=== PATIENT | female | born 2000 | race Caucasian/White ===

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

== ENCOUNTER → 2018-04-03 | Outpatient (CLI) | payer OTHER ==
[~2018-04-03] MED LIST changes: -ABL/15 PO; +ABL10 PO
== END | disposition home or self-care (01) ==
LOC: C.LAB1850 11:25
PROVIDERS: ATTEND Obstetrics & Gynecology
DX: N93.9 Abnormal uterine and vaginal bleeding, unspecified (principal)

== ENCOUNTER 2018-12-09 18:58 | Observation (INO) ==
[2018-12-09] MEDS ORDERED: ACETAMINOPHEN 325 MG TAB PO PRN (19:44)
[2018-12-09] MEDS ORDERED: LACTATED RINGER'S 1,000 ML IV ONE (20:09)
[2018-12-09 20:11] LABS: Appearance Urine Cloudy (Clear); Bacteria Urine Automated Negative (Negative); Bilirubin Urine Negative (Negative); Color Urine Yellow; Epithelial Cell Urine Auto >30 /lpf (0-5); Glucose Urine UA Negative (Negative); Ketones Urine Negative (Negative); Leukocyte Esterase Urine 2+ (Negative); Nitrite Urine Negative (Negative); Protein Urine Negative (Negative); Specific Gravity Urine 1.013 (1.000-1.030); Urobilinogen Urine Negative (Negative); pH Urine 7.5 (4.5-7.5)
--- NOTE | 2018-12-09 20:19 | History & Physical Report ---
Date of Service December 09, 2018 Assessment & Plan (1) uterine contractions: 18 yo at 31.2 wks with multiple complaints VSS Afebrile ctxs with cervical dilatation @ 1cm Vaginal augustin FHR reassuring Plan; Observe, monitor, labs, FFN, IVF bolus, Diflucan for augustin and reevaluate (2) Vagina, candidiasis: History of Present Illness Chief Complaint: Multiple Primary Care Provider: He Arechiga MD Patient is a 18 yo at 31.2 wks who has multiple complaints She passed her mucus plug yesterday with yellow d/c, it has never been yellow before She has been feeling BH ctxs since 10/27/18, they have been iregular every 1 to 1.5 hours but they got more regular today q 5-10 min She felt a strong one last night when she passed her mucus plug, it was like ripping pain in middle of her belly She c/o burning in vagina and with urination, she called 3 days ago and was told to start AB for UTI, but it was not called in to her pharmacy She has nausea+ but no vomiting No VB +FM but decreased Her has been complicated by 1) h/o Triploidy in P1, had IUFD and D&C 2)Anxiety/ depression, h/o PTSD 3) Smoker Allergies Allergy/AdvReac Type Severity Reaction Status Date / Time cefuroxime Allergy Mild RASH Verified 12/09/18 19:25 Sulfa (Sulfonamide Allergy Unknown rash Verified 12/09/18 19:25 Antibiotics) Home Medications Home Medications Medication Instructions Recorded Confirmed Type vefarcnjbh-matycfwejfoyw-hpum 1 cap PO Q6H PRN 12/09/18 12/09/18 History [Fioricet] ferrous sulfate [iron] 325 mg PO DAILY 12/09/18 12/09/18 History vit-iron fum-folic ac 12/09/18 History [ Vitamin] Patient History Medical History Migraines Bipolar disorder (Chronic) PTSD (post-traumatic stress disorder) (Chronic) Oppositional defiant disorder (Chronic) Anxiety disorder (Chronic) Social History marital status: Single Current Living Situation: Other Current Living Situation Comment: jacob, and 2 guests who will be leaving on 12/18 Other Information That Helps Us Care for You: No Feels Safe at Home: Yes Safety Concerns: Feels Safe At This Time Smoking Status: Former smoker Do You Dip or Chew Tobacco: No Tobacco Cessation Education Requested by Patient: No Hx Alcohol Use: No Hx Substance Use: No Beliefs That Will Affect Care: None Preferred Language: Macedonian Communication Ability: Effective [employer] D[employer] Stewardess Required: No Review of Systems All systems reviewed & are unremarkable except as noted in HPI & below Physical Exam 2 Vital Signs (Past 24 Hours): Last Vital Signs Temp 36.9 C 12/09/18 19:12 Pulse 94 H 12/09/18 19:12 Resp 18 12/09/18 19:12 BP 107/76 12/09/18 19:12 Constitutional: WD/WN, vitals as above comfortable Gastrointestinal (Abdomen): Inspection/Auscultation: abdomen normal to inspection Percussion/Palpation: abdomen soft Mild ctxs q 2-3min Genitourinary: SSE; abundant curdy d/c, c/w augustin Amnisure negative Cervix 1cm/ soft, but no effacement, -3 Monitoring External Monitor 130's baseline, AGA Tocodynamometer Mild / small? ctxs q2-3 min
[2018-12-09] MEDS ORDERED: FLUCONAZOLE 100 MG TAB PO STA (20:26)
[2018-12-09] MEDS ORDERED: LACTATED RINGER'S 1,000 ML IV SCH ×2 (20:30→22:45)
[2018-12-09] MEDS ORDERED: MAGNESIUM SULFATE / WTR 4 GM/100 ML BAG IV ONE ×2 (20:50→22:50)
[2018-12-09] MEDS ORDERED: TERBUTALINE SULFATE 1 MG/ML VIAL SQ ONE (21:58)
[2018-12-09] MEDS ORDERED: BETAMETH SOD PHOS/ACETATE IA 6 MG/ML IM SCH (22:00)
--- NOTE | 2018-12-09 22:21 | Obstetrical Progress Note ---
Date of Service December 09, 2018 Subjective Patient is reevaluated She feels better in terms of ctxs but now she has back pain She took Tylenol for both and it helped U/A LE+, epithelial cells+, no bacteria Amnisure negative FFN negative Bed side US with full bladder: CL: 28-29 mm HOSSEIN 13 cm Vertex VE: [place] still monitoring ctxs despite IVF bolus Plan to observe overnight, Betamethasone series and terbutaline SQ once Physical Exam 2 Vital Signs (Past 24 Hours): Last Vital Signs Temp 36.9 C 12/09/18 19:12 Pulse 94 H 12/09/18 19:12 Resp 18 12/09/18 19:12 BP 107/76 12/09/18 19:12
[2018-12-09] MEDS ORDERED: MAGNESIUM SULFATE 40GM / WTR 1,000 ML BAG IV ONE (22:34)
[2018-12-09] MEDS ORDERED: MAGNESIUM SULFATE 4GM / WTR 100 ML BAG IV ONE (22:34)
--- NOTE | 2018-12-09 22:34 | Obstetrical Progress Note ---
Date of Service December 09, 2018 Subjective Patient is back from BR VE repeated Cervix 2-3 cm/ 50-60%/bulging bag FHR categ I [place]: ctxs q2-3 min AP: 18 yo at 31.2 wks with contractions, cervical change Plan to start Magnesium IV tocolysis, transfer to [facility] with NICU Physical Exam 2 Vital Signs (Past 24 Hours): Last Vital Signs Temp 36.9 C 12/09/18 19:12 Pulse 96 H 12/09/18 22:25 Resp 18 12/09/18 22:25 BP 119/65 12/09/18 22:25
[2018-12-09] MEDS ORDERED: MAGNESIUM SULFATE / WTR 40 GM/1,000 ML BAG IV SCH (23:15)
--- NOTE | 2018-12-13 07:47 | Discharge Summary ---
DETAILS OF ADMISSION: The patient is a 18-year-old G2, P0-0-1-0 at 31 weeks and 2 days of gestation, who presented to Labor and Delivery on 12/10/2018 with multiple complaints, back pain, mucousy discharge, being wet, contractions getting worse, abdominal pain, burning with urination, nausea and decreased movements and on the exam, she was found to have abundant vaginal candidal discharge and her cervix was 1 cm thick, -3 and her heart rate was category 1 with a reactive NST. She was given IV fluids, Diflucan for Cele and observed. During observation, she started to have regular contractions and she was feeling them. Her cervix changed to 2-3 cm, 60% and with a bulging bag. At that point, decision was made to start tocolysis and steroid series was for lung maturation. She was given Celestone 12 mg IM and then IV magnesium was started for tocolysis and she was transferred to [facility], bed in NICU was available for . Contact was made with [facility], accepted her transfer. She was transferred with a helicopter to [facility] on 12/10/2018. See my notes in the [employer] system for details.
== END 2018-12-09 23:52 | disposition short-term general hospital (02) ==
LOC: OPB 18:58 → 4S1 18:58

== ENCOUNTER 2018-12-21 18:56 | Observation (INO) ==
[2018-12-21] MEDS ORDERED: LACTATED RINGER'S 1,000 ML IV ONE (19:28)
[2018-12-21 20:01] LABS: Basophils # (auto) 0.02 K/uL (0-0.2); Basophils % (auto) 0.2 %; Eosinophils # (auto) 0.05 K/uL (0-0.5); Eosinophils % (auto) 0.4 %; Hematocrit (blood only) 32.8 % (37-47); Hemoglobin 10.8 g/dL (12.0-16.0); Immature Granulocytes # (auto) 0.13 K/uL (0.00-0.02); Immature Granulocytes % (auto) 1.1 %; Lymphocytes # (auto) 2.88 K/uL (1.2-3.4); Lymphocytes % (auto) 23.6 %; Mean Corpuscular Volume 92.1 fL (80-100); Mean Platelet Volume 8.8 fL (7.4-10.4); Monocytes # (auto) 1.04 K/uL (0.11-0.59); Monocytes % (auto) 8.5 %; Neutrophils % (auto) 66.2 %; Platelet Count 239 K/uL (130-400); RDW Coefficient of Variation 13.3 % (11.5-14.5); RDW Standard Deviation 44.1 fL (36.4-46.3); Red Blood Count 3.56 M/uL (4.2-5.4); White Blood Count 12.22 K/uL (4.8-10.8)
[2018-12-21 20:10] LABS: INR 0.9 (0.9-1.1); Partial Thromboplastin Ratio 0.9; Prothrombin Time 9.4 Seconds (9.0-12.0)
[2018-12-21] MEDS ORDERED: NIFEdipine 10 MG CAP PO STA ×2 (20:18→21:14)
[2018-12-21 20:23] LABS: Mean Corpuscular Hgb Conc 32.9 g/dL (32-36)
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
[2018-12-21] MEDS: LACTATED RINGER'S 1,000 ML IV SCH (20:45)
[2018-12-21 21:02] LABS: Appearance Urine Clear (Clear); Bacteria Urine Automated Negative (Negative); Bilirubin Urine Negative (Negative); Color Urine Yellow; Epithelial Cell Urine Auto >30 /lpf (0-5); Glucose Urine UA Negative (Negative); Ketones Urine Trace (Negative); Leukocyte Esterase Urine Trace (Negative); Nitrite Urine Negative (Negative); Protein Urine Negative (Negative); Specific Gravity Urine 1.021 (1.000-1.030); Urobilinogen Urine Negative (Negative)
[2018-12-21] MEDS ORDERED: ONDANSETRON 4 MG OD TAB PO PRN (21:52)
[2018-12-21] MEDS ORDERED: PRENATAL VITAMIN 1 TAB PO SCH (21:55)
--- NOTE | 2018-12-21 21:58 | Obstetrical Progress Note ---
Date of Service December 21, 2018 Subjective Patient is reevaluated She feels better, ctxs spaced out and less painful She is tired and likes to sleep took 20 mg Procardia and then 10 mg due to persistent ctxs VSS Afebrile FHR categ I Abd soft, NT, no ctxs, toco s adjused [place] mild irregular ctxs, spaced out Lab Results 12/21/18 12/21/18 12/21/18 Range/Units 19:44 19:44 19:45 WBC 12.22 H (4.8-10.8) K/uL RBC 3.56 L (4.2-5.4) M/uL Hgb 10.8 L (12.0-16.0) g/dL Hct 32.8 L (37-47) % MCV 92.1 (80-100) fL MCH 30.3 (25-34) pg MCHC 32.9 (32-36) g/dL RDW Std Deviation 44.1 (36.4-46.3) fL RDW Coeff of Gene 13.3 (11.5-14.5) % Plt Count 239 (130-400) K/uL MPV 8.8 (7.4-10.4) fL Immature Gran % (Auto) 1.1 % Neut % (Auto) 66.2 % Lymph % (Auto) 23.6 % [place] % (Auto) 8.5 % Eos % (Auto) 0.4 % Baso % (Auto) 0.2 % Immature Gran # (Auto) 0.13 H (0.00-0.02) K/uL Neut # (Auto) 8.10 H (1.4-6.5) K/uL Lymph # (Auto) 2.88 (1.2-3.4) K/uL [place] # (Auto) 1.04 H (0.11-0.59) K/uL Eos # (Auto) 0.05 (0-0.5) K/uL Baso # (Auto) 0.02 (0-0.2) K/uL PT 9.4 (9.0-12.0) Seconds INR 0.9 (0.9-1.1) APTT 24.0 (21.0-31.0) Seconds PTT Ratio 0.9 Fibrinogen 345 (184-400) mg/dl Urine Color Urine Appearance (Clear) Urine pH (4.5-7.5) Ur Specific [place] (1.000-1.030) Urine Protein (Negative) Urine Glucose (UA) (Negative) Urine Ketones (Negative) Urine Blood (Negative) Urine Nitrite (Negative) Urine Bilirubin (Negative) Urine Urobilinogen (Negative) Ur Leukocyte Esterase (Negative) Urine WBC (Auto) (0-5) /hpf Urine RBC (Auto) (0-4) /hpf U Hyaline Cast (Auto) (0-5) /lpf U Epithel Cells (Auto) (0-5) /lpf Urine Bacteria (Auto) (Negative) 12/21/18 Range/Units 20:15 WBC (4.8-10.8) K/uL RBC (4.2-5.4) M/uL Hgb (12.0-16.0) g/dL Hct (37-47) % MCV (80-100) fL MCH (25-34) pg MCHC (32-36) g/dL RDW Std Deviation (36.4-46.3) fL RDW Coeff of Gene (11.5-14.5) % Plt Count (130-400) K/uL MPV (7.4-10.4) fL Immature Gran % (Auto) % Neut % (Auto) % Lymph % (Auto) % [place] % (Auto) % Eos % (Auto) % Baso % (Auto) % Immature Gran # (Auto) (0.00-0.02) K/uL Neut # (Auto) (1.4-6.5) K/uL Lymph # (Auto) (1.2-3.4) K/uL [place] # (Auto) (0.11-0.59) K/uL Eos # (Auto) (0-0.5) K/uL Baso # (Auto) (0-0.2) K/uL PT (9.0-12.0) Seconds INR (0.9-1.1) APTT (21.0-31.0) Seconds PTT Ratio Fibrinogen (184-400) mg/dl Urine Color Yellow Urine Appearance Clear (Clear) Urine pH 6.0 (4.5-7.5) Ur Specific [place] 1.021 (1.000-1.030) Urine Protein Negative (Negative) Urine Glucose (UA) Negative (Negative) Urine Ketones Trace H (Negative) Urine Blood Negative (Negative) Urine Nitrite Negative (Negative) Urine Bilirubin Negative (Negative) Urine Urobilinogen Negative (Negative) Ur Leukocyte Esterase Trace H (Negative) Urine WBC (Auto) 5-10 H (0-5) /hpf Urine RBC (Auto) 0-4 (0-4) /hpf U Hyaline Cast (Auto) 1-5 (0-5) /lpf U Epithel Cells (Auto) >30 H (0-5) /lpf Urine Bacteria (Auto) Negative (Negative) Plan observe overnight, monitor, continue with IVF and Procardia Physical Exam 2 Vital Signs (Past 24 Hours): Last Vital Signs Pulse 107 H 12/21/18 19:13 Resp 18 12/21/18 20:09 BP 119/68 12/21/18 19:13
[2018-12-21] MEDS: DOCUSATE SODIUM 100 MG CAP PO SCH (23:39)
[2018-12-21] MEDS ORDERED: ACETAMINOPHEN 325 MG TAB PO PRN (23:47)
--- NOTE | 2018-12-21 23:51 | Obstetrical Progress Note ---
Date of Service December 21, 2018 Subjective Patient is reevaluated She is back from US US normal anterior placenta, HOSSEIN;8.8 ( measured 2 quadrants only) Denies any pain or contractions for 45 minutes No side effects from Procardia Desires Benadryl to sleep and air fan for the room Abd: soft, NT [place] still showing low amplitude ctxs but she does not feel them VE; 2/ 50%/ -3, posterior, unchanged AP: 18 yo at 33.1 wks with contractions, no cervical change, FHR reassuring US and blood work normal Plan: continue with Procardia, IVF, benadryl for sleep Repeat US in am All questions were answered Physical Exam 2 Vital Signs (Past 24 Hours): Last Vital Signs Pulse 88 12/21/18 23:26 Resp 18 12/21/18 20:09 BP 120/63 12/21/18 23:26
[2018-12-22] MEDS: ACETAMINOPHEN 325 MG TAB PO PRN ×2 (00:09→06:21)
[2018-12-22] MEDS: NIFEdipine 10 MG CAP PO SCH ×3 (01:46→08:38)
[2018-12-22] MEDS: LACTATED RINGER'S 1,000 ML IV SCH (04:45)
[2018-12-22 05:52] LABS: Basophils # (auto) 0.01 K/uL (0-0.2); Basophils % (auto) 0.1 %; Eosinophils # (auto) 0.05 K/uL (0-0.5); Eosinophils % (auto) 0.5 %; Hematocrit (blood only) 29.1 % (37-47); Hemoglobin 9.7 g/dL (12.0-16.0); Immature Granulocytes # (auto) 0.11 K/uL (0.00-0.02); Lymphocytes # (auto) 3.18 K/uL (1.2-3.4); Lymphocytes % (auto) 28.8 %; Mean Corpuscular Hgb Conc 33.3 g/dL (32-36); Mean Corpuscular Volume 91.8 fL (80-100); Mean Platelet Volume 8.7 fL (7.4-10.4); Monocytes # (auto) 0.91 K/uL (0.11-0.59); Monocytes % (auto) 8.2 %; Neutrophils % (auto) 61.4 %; Platelet Count 212 K/uL (130-400); RDW Coefficient of Variation 13.4 % (11.5-14.5); RDW Standard Deviation 44.3 fL (36.4-46.3); Red Blood Count 3.17 M/uL (4.2-5.4); White Blood Count 11.06 K/uL (4.8-10.8)
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
[2018-12-22 06:20] LABS: Partial Thromboplastin Ratio 0.9; Prothrombin Time 9.8 Seconds (9.0-12.0)
--- NOTE | 2018-12-22 08:00 | Obstetrical Progress Note ---
Date of Service December 22, 2018 Subjective Patient is reevaluated She feels well, no complaints No more ctxs or pain No LOF/VB +FM No side effects from Procardia FHR reactive [place]: still has those low amplitude frequent ctxs Bed side US: vertex, placenta anterior, normal, HOSSEIN 12.4 cm VE; unchanged, 2/ 40%/ -3, posterior Plan to continue to monitor Physical Exam 2 Vital Signs (Past 24 Hours): Last Vital Signs Temp 36.8 C 12/22/18 07:06 Pulse 81 12/22/18 07:06 Resp 18 12/22/18 07:06 BP 105/54 L 12/22/18 07:06
[2018-12-22] MEDS: DOCUSATE SODIUM 100 MG CAP PO SCH (08:37)
[2018-12-22] MEDS ORDERED: NIFEdipine 10 MG CAP PO SCH (11:00)
--- NOTE | 2018-12-22 11:06 | Obstetrical Progress Note ---
Date of Service December 22, 2018 Subjective Patient's mom ( raphael) is here and they like to be discharged Patient denies any pain or ctxs +FM's No side effects from Procardia Plan to d/c home with home pack and prescription and f/u this week in office Discussed when to call All questions were answered Physical Exam 2 Vital Signs (Past 24 Hours): Last Vital Signs Temp 36.8 C 12/22/18 07:06 Pulse 81 12/22/18 07:06 Resp 18 12/22/18 07:06 BP 105/54 L 12/22/18 07:06
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
== END 2018-12-22 11:28 | disposition home or self-care (01) ==
LOC: 4S1 18:56 → OPB 18:56

== ENCOUNTER 2019-01-14 17:41 | Inpatient (IN) ==
[2019-01-14] MEDS ORDERED: OXYTOCIN 30 UNITS/500 ML BAG IV PRN (19:12)
[2019-01-14] MEDS ORDERED: LACTATED RINGER'S 1,000 ML IV PRN (19:12)
[2019-01-14] MEDS ORDERED: PENICILLIN G POTASSIUM 3 MU in DEXTROSE 5% 100 ML IV PRN (19:12)
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
[2019-01-14] MEDS ORDERED: PENICILLIN G POTASSIUM 6 MU in DEXTROSE 5% 250 ML IV ONE (19:30)
[2019-01-14] MEDS: LACTATED RINGER'S 1,000 ML IV SCH (19:38)
[2019-01-14 19:46] LABS: Hematocrit (blood only) 33.1 % (37-47); Hemoglobin 11.1 g/dL (12.0-16.0); Mean Corpuscular Volume 89.5 fL (80-100); Mean Platelet Volume 8.7 fL (7.4-10.4); Platelet Count 250 K/uL (130-400); RDW Coefficient of Variation 13.4 % (11.5-14.5); RDW Standard Deviation 43.9 fL (36.4-46.3); White Blood Count 13.24 K/uL (4.8-10.8)
[2019-01-14 19:52] LABS: Mean Corpuscular Hgb Conc 33.5 g/dL (32-36)
--- NOTE | 2019-01-14 21:20 | Obstetrical Progress Note ---
Date of Service January 14, 2019 Subjective Patient is reevaluated She is lyng in bed, cuddled with her BF, all family members in the room She was ambulating earlier Ctxs q 3-4 min, lasting for 1 min, pain level is 6.5/10 per her No LOF/VB +FM She states she does not need pain meds nor epidural yet, they are painful but not severe She recieved 1st dose of PCN FHR had been categ I Royer: cts q2-5min AP: 18 yo at 36.3 wks, with ctxs, cervical change, GBS + FHR reassuring PCN 1st dose given Continue to monitor Expectant management Physical Exam 2 Vital Signs (Past 24 Hours): Last Vital Signs Temp 36.7 C 01/14/19 19:06 Pulse 100 H 01/14/19 19:06 Resp 22 01/14/19 19:06 BP 120/79 01/14/19 19:06
--- NOTE | 2019-01-15 00:22 | Obstetrical Progress Note ---
Date of Service January 15, 2019 Physical Exam 2 Vital Signs (Past 24 Hours): Last Vital Signs Temp 36.8 C 01/14/19 23:35 Pulse 88 01/14/19 23:29 Resp 18 01/14/19 23:05 BP 112/60 01/14/19 23:29 Genitourinary: Manual OB Exam: + cervical dilation 6 cm, + cervical effacement 100% and + station -2 OB Exam Monitor Tracing: + external FHT monitor used, + external uterine monitor used, + category I and + normal FHT variability AROM clear fluid
[2019-01-15] MEDS ORDERED: ePHEDrine sulfate 50 MG/ML AMP ONE (00:24)
[2019-01-15] MEDS ORDERED: BUPIVACAINE 0.25% 30 ML VIAL ONE (00:24)
[2019-01-15] MEDS ORDERED: fentaNYL citrate 100 MCG/2 ML VIAL ONE (00:24)
[2019-01-15] MEDS ORDERED: fentaNYL 2MCG/ML ROPIV 1.25MG/ML 100 ML BAG EPI ONE (00:25)
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
[2019-01-15] MEDS ORDERED: NALOXONE HCL 0.4 MG/1 ML VIAL/CARP IV PRN (01:17)
[2019-01-15] MEDS ORDERED: NALOXONE HCL 1 MG in SODIUM CHLORIDE 0.9% 1000ML 1,000 ML IV PRN (01:17)
[2019-01-15] MEDS ORDERED: ONDANSETRON INJ 2 MG/ML 2 ML VIAL IV PRN (01:17)
[2019-01-15] MEDS ORDERED: PROMETHAZINE HCL 12.5 MG in SODIUM CHLORIDE 0.9% 50 ML IV PRN (01:17)
[2019-01-15] MEDS ORDERED: NALBUPHINE HCL INJ 10 MG/ML AMP IV PRN (01:17)
[2019-01-15] MEDS ORDERED: DiphenhydrAMINE HCL 50 MG/ML VIAL IV PRN (01:17)
[2019-01-15] MEDS ORDERED: fentaNYL 2MCG/ML ROPIV 1.25MG/ML 100 ML BAG EPI PRN (01:17)
[2019-01-15] MEDS ORDERED: LACTATED RINGER'S 1,000 ML IV PRN (01:17)
[2019-01-15] MEDS ORDERED: ePHEDrine sulfate 50 MG/ML AMP IV PRN (01:17)
[2019-01-15] MEDS: LACTATED RINGER'S 1,000 ML IV SCH (01:58)
[2019-01-15] MEDS ORDERED: IBUPROFEN 600 MG TAB PO ONE (09:20)
[2019-01-15] MEDS ORDERED: LACTATED RINGER'S 1,000 ML IV SCH (09:30)
--- NOTE | 2019-01-15 10:42 | Anesthesia Procedure Note ---
Date of Service January 15, 2019 Anesthesia Post Epidural Note Vital Signs Vital Signs: Temp Pulse Resp BP Pulse Ox 36.8 C 95 H 18 129/62 97 01/15/19 00:11 01/15/19 05:23 01/15/19 02:45 01/15/19 05:23 01/15/19 03:01 Notes Mental Status: alert / awake / arousable and participated in evaluation Nausea / Vomiting: adequately controlled Pain: adequately controlled Airway Patency, RR, SpO2: stable & adequate BP & HR: stable & adequate Hydration State: stable & adequate Neuraxial Anesthesia: was administered and sensory block is resolving Anesthetic Complications: no major complications apparent Epidural: Removed without complications and With tip intact
[2019-01-15] MEDS ORDERED: HYDROCORTISONE ACETATE 25 MG SUPP PR PRN (11:54)
[2019-01-15] MEDS ORDERED: BENZOCAINE 20% AER SPR 82.5 GM CAN EXT PRN (11:54)
[2019-01-15] MEDS ORDERED: DIPHTHERIA/TETANUS/PERTUSSIS 0.5 ML SYR/VIAL IM ONE (11:54)
[2019-01-15] MEDS ORDERED: ACETAMINOPHEN 325 MG TAB PO PRN (11:54)
[2019-01-15] MEDS ORDERED: BISACODYL 10 MG SUPP PR PRN (11:54)
[2019-01-15] MEDS ORDERED: SUPERCREAM 0.870% 15 GM JAR EXT PRN (11:54)
[2019-01-15] MEDS: PRENATAL VITAMIN 1 TAB PO SCH (12:48)
[2019-01-15] MEDS ORDERED: SODIUM CHLORIDE 0.65% NA SOLN 45 ML (OCEAN) ONE (15:53)
[2019-01-15] MEDS ORDERED: Nursing to Pharmacy Communication ONE (15:54)
[2019-01-15] MEDS ORDERED: SODIUM CHLORIDE 0.65% NA SOLN 45 ML (OCEAN) PRN (15:56)
[2019-01-15] MEDS: DOCUSATE SODIUM 100 MG CAP PO SCH (20:39)
[2019-01-15] MEDS: IBUPROFEN 600 MG TAB PO PRN (20:40)
[2019-01-16] MEDS: DOCUSATE SODIUM 100 MG CAP PO SCH ×2 (08:56→20:25)
[2019-01-16] MEDS: PRENATAL VITAMIN 1 TAB PO SCH (08:57)
[2019-01-16] MEDS: IBUPROFEN 600 MG TAB PO PRN ×2 (11:48→20:25)
--- NOTE | 2019-01-16 12:54 | Obstetrical Progress Note ---
Date of Service January 16, 2019 Assessment & Plan (1) normal course: PPD #1 pt doing well no complaints anticipate disch tomorrow Physical Exam Vital Signs (Past 24 Hours) Last Vital Signs Temp 36.6 C 01/16/19 07:00 Pulse 82 01/16/19 07:00 Resp 24 01/16/19 07:00 BP 113/68 01/16/19 07:00 Pulse Ox 97 01/16/19 07:00
[2019-01-16] MEDS ORDERED: BISACODYL 5 MG TABEC PO SCH (20:00)
[2019-01-17] MEDS: PRENATAL VITAMIN 1 TAB PO SCH (08:22)
[2019-01-17] MEDS: IBUPROFEN 600 MG TAB PO PRN (08:22)
[2019-01-17] MEDS: DOCUSATE SODIUM 100 MG CAP PO SCH (08:22)
--- NOTE | 2019-01-17 09:16 | Obstetrical Progress Note ---
Date of Service January 17, 2019 Subjective Patient is seen and examined. She feels well, no complaints. Ambulating without dizziness Voiding without difficulty Tolerating regular diet with out N&V Bleeding is minimal No fever/ chills/ CP/ SOB/ N&V/ Leg pain Breast feeding / pumping Discussed contraception, plans to have Mirena IUD Vital Signs Temp Pulse Resp BP Pulse Ox 01/16/19 23:30 36.6 C 98 H 18 122/67 98 Vital Signs Temp Pulse Resp BP BP Pulse Ox 01/16/19 23:30 36.6 C 98 H 18 122/67 98 01/16/19 20:35 36.6 C 83 18 128/80 98 01/16/19 15:15 36.9 C 98 H 20 109/69 Lab Results 01/14/19 01/16/19 Range/Units 19:31 17:08 WBC 13.24 H (4.8-10.8) K/uL RBC 3.70 L (4.2-5.4) M/uL Hgb 11.1 L (12.0-16.0) g/dL Hct 33.1 L (37-47) % MCV 89.5 (80-100) fL MCH 30.0 (25-34) pg MCHC 33.5 (32-36) g/dL RDW Std Deviation 43.9 (36.4-46.3) fL RDW Coeff of Gene 13.4 (11.5-14.5) % Plt Count 250 (130-400) K/uL MPV 8.7 (7.4-10.4) fL HIV 1&2 Ab/P24 Ag 4thGn Neg (Neg) PE: General: Alert, orientedx3, NAD Abd: soft, NT, fundus firm, below Umbilicus Perineum intact, Lochia rubra minimal Ext; NT, no edema AP: 18 yo s/p , ppd# 2 VSS Afebrile doing well Continue routine care All questions were answered Instructions were given when to call D/C home , f/u in office Physical Exam Vital Signs (Past 24 Hours): Last Vital Signs Temp 36.6 C 01/16/19 23:30 Pulse 98 H 01/16/19 23:30 Resp 18 01/16/19 23:30 BP 122/67 01/16/19 23:30 Pulse Ox 98 01/16/19 23:30
[2019-01-17 10:31] LABS: Basophils # (auto) 0.02 K/uL (0-0.2); Basophils % (auto) 0.2 %; Eosinophils # (auto) 0.14 K/uL (0-0.5); Eosinophils % (auto) 1.1 %; Hematocrit (blood only) 31.5 % (37-47); Hemoglobin 10.4 g/dL (12.0-16.0); Immature Granulocytes % (auto) 0.8 %; Lymphocytes # (auto) 2.78 K/uL (1.2-3.4); Lymphocytes % (auto) 22.2 %; Mean Corpuscular Volume 89.7 fL (80-100); Mean Platelet Volume 8.6 fL (7.4-10.4); Monocytes # (auto) 0.81 K/uL (0.11-0.59); Monocytes % (auto) 6.5 %; Neutrophils # (auto) 8.65 K/uL (1.4-6.5); Neutrophils % (auto) 69.2 %; Platelet Count 232 K/uL (130-400); RDW Coefficient of Variation 13.6 % (11.5-14.5); RDW Standard Deviation 44.3 fL (36.4-46.3); Red Blood Count 3.51 M/uL (4.2-5.4)
--- NOTE | 2019-01-20 15:39 | Procedure Note ---
Vaginal Delivery Summary Date of Service January 28, 2019
--- NOTE | 2019-01-30 09:35 | Procedure Note ---
Vaginal Delivery Summary Date of Service January 30, 2019 Delivery Note 18 y/o F P0000 at 36.4 weeks with live female over intact perineum. Apgars 7/8 weight 6lbs 13 oz. EBL 300 ml. Cord blood obtained. Placenta delivered spontaneously and intact. No tears. Final sponge and instrument count are correct. Mom and baby stable.
== END 2019-01-17 12:53 | disposition home or self-care (01) | DRG 807 ==
LOC: OPB 17:41 → 4S1 17:42 → 4S2 01-15 06:14

== ENCOUNTER 2021-08-23 09:54 | Observation (INO) ==
[2021-08-23] MEDS ORDERED: OXYTOCIN 30 UNITS/500 ML BAG IV PRN (10:40)
[2021-08-23] MEDS ORDERED: LACTATED RINGER'S 1,000 ML IV PRN (10:40)
[2021-08-23 11:04] LABS: Hematocrit (blood only) 31.3 % (37-47); Hemoglobin 10.4 g/dL (12.0-16.0); Mean Corpuscular Hemoglobin 30.1 pg (25-34); Mean Corpuscular Hgb Conc 33.2 g/dL (32-36); Mean Corpuscular Volume 90.7 fL (80-100); Mean Platelet Volume 8.3 fL (7.4-10.4); Platelet Count 207 K/uL (130-400); RDW Coefficient of Variation 14.1 % (11.5-14.5); RDW Standard Deviation 45.9 fL (36.4-46.3); Red Blood Count 3.45 M/uL (4.2-5.4); White Blood Count 12.35 K/uL (4.8-10.8)
--- NOTE | 2021-08-23 12:51 | Progress Note ---
Date of Service August 23, 2021 Assessment & Plan (1) False labor: Plan: Pt seen for labor check VE 3-4cm. same as this morning Pt is kept for observation ctx have spaced out and are less intense VE done shows cervix is unchanged and pt wishes be discharged home with instructions Admission and Anticipated Discharge Date Admission Date: August 23, 2021 Results & Data ([facility]) Vital Signs (Past 12 Hours) Vital Signs Temp Pulse Resp BP 08/23/21 12:13 96 H 130/60 08/23/21 10:30 36.7 C 16 112/57 L 08/23/21 09:56 36.7 C 18
--- NOTE | 2021-09-03 04:26 | Discharge Summary (DS) ---
DATE OF ADMISSION: 08/23/2021. HISTORY OF PRESENT ILLNESS: This is a 21-year-old G4, P1, due date is 09/12/2021 making her 37 weeks and 1 day on 08/23/2021. The patient presented to labor and delivery for labor check. She had been seen earlier in the morning and discharged home. On exam, she was 34 cm, which was the same as her morning exam prior to discharge. She was kept in observation for several hours. She ambulated and d one some IV fluids. Her cervix did not change. She was then discharged home in stable condition wit h instructions. Past medical history, surgical history, family history and allergies were all reviewed. Patient is discharged home with instructions for followup. Job ID: [id number]
== END 2021-08-23 12:45 | disposition home or self-care (01) | DRG 833 ==
LOC: OPB 09:54 → 4S1 09:58 → INTOOBSV 10:40 → 4S1 10:40
DX: Z3A.35 35 weeks gestation of pregnancy; O47.03 False labor before 37 completed weeks of gestation, third trimester